=== PATIENT | female | born 1945 | race Caucasian/White ===

== ENCOUNTER 2019-07-05 05:33 | Outpatient (CLI) | payer MEDICARE, OTHER ==
[~2019-07-05] VITALS: Ht 172 cm; Wt 66.3 kg
[2019-07-05] MEDS ORDERED: EMPA10TA PO (09:43)
[2019-07-05] MEDS ORDERED: METF-397 PO (09:43)
== END 2019-07-05 09:55 | disposition home or self-care (01) ==
LOC: PREOP 05:33
PROVIDERS: ATTEND Specialist
DX: Z01.818 Encounter for other preprocedural examination (principal)

== ENCOUNTER 2019-07-06 09:55 | Day surgery (SDC) | payer MEDICARE, OTHER ==
[~2019-07-06] VITALS: Ht 172 cm; Wt 66.3 kg
[~2019-07-06 09:55] MED LIST: EMPA10TA PO; METF-397 PO
[2019-07-06 10:15] VITALS: BP 139/66
[2019-07-06] MEDS ORDERED: MOXIFLOXACIN OPHTH SOLN 5 MG/ML 0.3 ML SYRINGE OP ONE (10:15)
[2019-07-06] MEDS ORDERED: POVIDONE (BETADINE) OPHTH SOLN 5% 30 ML OP ONE (10:15)
[2019-07-06] MEDS ORDERED: LIDOCAINE PF 1% 2 ML AMP IR PRN (10:15)
[2019-07-06] MEDS ORDERED: TIMOLOL MALEATE 0.5% 5 ML (TIMOPTIC) BTL OU PRN (10:15)
[2019-07-06] MEDS: TETRACAINE 0.5% OPHTH SOLN 4 ML BTL (SINGLE DOSE ONLY) OU PRN ×4 (10:16→10:37)
[2019-07-06] MEDS: CYCLOPENTOLATE 1% (CYCLOGYL) 2 ML DROPS OP SCH ×3 (10:24→10:37)
[2019-07-06] MEDS: PHENYLEPHRINE 10% OPHTH (NEO-SYN) 5 ML BTL OU SCH ×3 (10:24→10:37)
--- NOTE | 2019-07-06 10:39 | Ophthalmologist Pre-Op Note ---
Pre-Operative Progress Note H&P Reviewed The H&P was reviewed, patient examined and no changes noted. Date H&P Reviewed: Jul 06, 2019 Time H&P Reviewed: 10:39 Pre-Op Dx Cataract, Right Eye DANIEL SIMON MD Jul 06, 2019 10:39 POS
[2019-07-06] MEDS ORDERED: MIDAZOLAM 2 MG/2 ML (VERSED) VIAL ONE (10:46)
--- NOTE | 2019-07-06 11:06 | Ophthalmology Operative Report ---
Cataract removal/placement IOL PREOPERATIVE DIAGNOSIS: Cataract Right Eye POSTOPERATIVE DIAGNOSIS: Cataract Right Eye PROCEDURE: Cataract removal and placement of posterior chamber implant, right eye SURGEON: Juan Carlos Simon ANESTHESIA: Topical with sedation COMPLICATIONS: None ESTIMATED BLOOD LOSS: Minimal DESCRIPTION OF PROCEDURE: After proper informed consent was obtained, the patient, a 74 female, was taken to the Operating Room and the right eye was anesthetized with tetracaine. The right eye was then prepped and draped in the usual manner. A wire lid speculum was placed. A paracentesis was made at the left hand position. Preservative free lidocaine was injected into the anterior chamber followed by viscoelastic. A clear corneal incision was made in the temporal position. A capsulorrhexis was preformed and the central nuclear and cortical material were removed. The posterior capsule was polished and Nicolas 17.5 AU00T0 IOL was placed into the capsular bag. The residual viscoelastic was aspirated and balanced saline solution was injected into the anterior chamber. Moxifloxacin was injected into the anterior chamber. The wound was checked and found to be water tight. The patient tolerated the procedure well without complications. JUAN CARLOS SIMON MD Jul 06, 2019 11:06 POS
[2019-07-06 11:20] VITALS: BP 125/71
[2019-07-06] MEDS ORDERED: acetaZOLAMIDE ER 500 MG CAP (DIAMOX SEQUELS) PO ONE (11:30)
--- OUTSIDE RECORDS SUMMARY | 2019-08-01 13:15 | XMS REPORT | Continuity of Care Document ---
Author Organization Unknown Address Unknown Phone Unavailable Allergies Active Description Code Type Severity Reaction Onset Reported/Identified Relationship to Patient Clinical Status Yes NO KNOWN DRUG ALLERGIES UNKNOWN NO KNOWN DRUG ALLERG Yes NO KNOWN DRUG ALLERGIES UNKNOWN UNKNOWN Yes No Known Drug Allergies [id number] Drug Allergy Unknown N/A 07/05/2019 Medications There is no data. Problems Date Dx Coded Attending Type Code Diagnosis Diagnosed By 2017 RICK MONTERO 715.16 OSTEOARTHROSIS, LOCALIZED, PRIMARY, INVOLVING LOWER LEG 2017 RICK MONTERO M17.11 UNILATERAL PRIMARY OSTEOARTHRITIS, RIGHT KNEE 01/31/2019 W 790.6 OTHE R ABNORMAL BLOOD CHEMISTRY 01/31/2019 W R73.9 HYPE RGLYCEMIA, UNSPECIFIED 02/09/2019 W 250.80 JOON BETES MELLITUS WITH OTHER SPECIFIED MANIFESTATIONS, TYPE II OR UNSPECIFIED TYPE, NOT STATED UNCONTROLLED 02/09/2019 W E11.65 TYP E 2 DIABETES MELLITUS WITH HYPERGLYCEMIA 02/22/2019 Kendell Keating 250.00 DIABETES MELLITUS WITHOUT MENTION OF COMPLICATION, TYPE II OR UNSPECIFIED TYPE, NOT STATED UNCONTROLLED 02/22/2019 Kendell Keating E11.9 TYPE 2 DIABETES MELLITUS WITHOUT COMPLICATIONS 03/22/2019 Kendell Keating 250.00 DIABETES MELLITUS WITHOUT MENTION OF COMPLICATION, TYPE II OR UNSPECIFIED TYPE, NOT STATED UNCONTROLLED 03/22/2019 Kendell Keating E11.9 TYPE 2 DIABETES MELLITUS WITHOUT COMPLICATIONS 04/09/2019 Kendell Keating 250.00 DIABETES MELLITUS WITHOUT MENTION OF COMPLICATION, TYPE II OR UNSPECIFIED TYPE, NOT STATED UNCONTROLLED 04/09/2019 Kendell Keating E11.9 TYPE 2 DIABETES MELLITUS WITHOUT COMPLICATIONS 04/09/2019 Kendell Keating 250.00 DIABETES MELLITUS WITHOUT MENTION OF COMPLICATION, TYPE II OR UNSPECIFIED TYPE, NOT STATED UNCONTROLLED 04/09/2019 Kendell Keating E11.9 TYPE 2 DIABETES MELLITUS WITHOUT COMPLICATIONS 04/09/2019 Kendell Keating 250.00 DIABETES MELLITUS WITHOUT MENTION OF COMPLICATION, TYPE II OR UNSPECIFIED TYPE, NOT STATED UNCONTROLLED 04/09/2019 Kendell Keating E11.9 TYPE 2 DIABETES MELLITUS WITHOUT COMPLICATIONS 04/09/2019 Kendell Keating 250.00 DIABETES MELLITUS WITHOUT MENTION OF COMPLICATION, TYPE II OR UNSPECIFIED TYPE, NOT STATED UNCONTROLLED 04/09/2019 Kendell Keating E11.9 TYPE 2 DIABETES MELLITUS WITHOUT COMPLICATIONS 04/16/2019 Kendell Keating 250.00 DIABETES MELLITUS WITHOUT MENTION OF COMPLICATION, TYPE II OR UNSPECIFIED TYPE, NOT STATED UNCONTROLLED 04/16/2019 Kendell Keating E11.9 TYPE 2 DIABETES MELLITUS WITHOUT COMPLICATIONS 05/08/2019 W 250.80 JOON BETES MELLITUS WITH OTHER SPECIFIED MANIFESTATIONS, TYPE II OR UNSPECIFIED TYPE, NOT STATED UNCONTROLLED 05/08/2019 W E11.65 TYP E 2 DIABETES MELLITUS WITH HYPERGLYCEMIA 06/21/2019 Kendell Keating 250.00 DIABETES MELLITUS WITHOUT MENTION OF COMPLICATION, TYPE II OR UNSPECIFIED TYPE, NOT STATED UNCONTROLLED 06/21/2019 Kendell Keating E11.9 TYPE 2 DIABETES MELLITUS WITHOUT COMPLICATIONS 07/05/2019 DANIEL SIMON MD Ot Z01.818 ENCOUNTER FOR OTHER PREPROCEDURAL EXAMIN 07/06/2019 DANIEL SIMON MD, Ot E11.36 TYPE 2 DIABETES MELLITUS WITH DIABETIC C 07/06/2019 DANIEL SIMON MD Ot H25.11 AGE-RELATED NUCLEAR CATARACT, RIGHT EYE 07/06/2019 DANIEL SIMON MD Ot Z79.84 DETENTION (CURRENT) USE OF ORAL HYPOGLYC 07/06/2019 DANIEL SIMON MD Ot Z79.899 OTHER DETENTION (CURRENT) DRUG THERAPY 07/06/2019 DANIEL SIMON MD Ot Z80 .9 FAMILY HISTORY OF MALIGNANT NEOPLASM, UN 07/06/2019 DANIEL SIMON MD Ot Z90.710 ACQUIRED ABSENCE OF BOTH CERVIX AND UTER 07/10/2019 DANIEL SIMON MD, Ot E11.36 TYPE 2 DIABETES MELLITUS WITH DIABETIC C 07/10/2019 DANIEL SIMON MD Ot H25.11 AGE-RELATED NUCLEAR CATARACT, RIGHT EYE 07/10/2019 DANIEL SIMON MD, Ot Z79.84 DIRECTOR SELECTION AND ADMINISTRATION (CURRENT) USE OF ORAL HYPOGLYC 07/10/2019 DANIEL SIMON MD Ot Z79.899 OTHER DIRECTOR SELECTION AND ADMINISTRATION (CURRENT) DRUG THERAPY 07/10/2019 DANIEL SIMON MD, Ot Z80 .9 FAMILY HISTORY OF MALIGNANT NEOPLASM, UN 07/10/2019 DANIEL SIMON MD, Ot Z90.710 ACQUIRED ABSENCE OF BOTH CERVIX AND UTER 07/11/2019 DANIEL SIMON MD, Ot E11.36 TYPE 2 DIABETES MELLITUS WITH DIABETIC C 07/11/2019 DANIEL SIMON MD Ot H25.11 AGE-RELATED NUCLEAR CATARACT, RIGHT EYE 07/11/2019 DANIEL SIMON MD, Ot Z79.84 DIRECTOR SELECTION AND ADMINISTRATION (CURRENT) USE OF ORAL HYPOGLYC 07/11/2019 DANIEL SIMON MD, Ot Z79.899 OTHER DETENTION (CURRENT) DRUG THERAPY 07/11/2019 DANIEL SIMON MD, Ot Z80 .9 FAMILY HISTORY OF MALIGNANT NEOPLASM, UN 07/11/2019 DANIEL SIMON MD, Ot Z90.710 ACQUIRED ABSENCE OF BOTH CERVIX AND UTER 07/30/2019 DANIEL SIMON MD, Ot E11.36 TYPE 2 DIABETES MELLITUS WITH DIABETIC C 07/30/2019 DANIEL SIMON MD, Ot H25.12 AGE-RELATED NUCLEAR CATARACT, LEFT EYE 07/30/2019 DANIEL SIMON MD, Ot Z79.84 DETENTION (CURRENT) USE OF ORAL HYPOGLYC 07/30/2019 DANIEL SIMON MD Ot Z79.899 OTHER DETENTION (CURRENT) DRUG THERAPY 07/30/2019 DANIEL SIMON MD, Ot Z80 .9 FAMILY HISTORY OF MALIGNANT NEOPLASM, UN 07/30/2019 DANIEL SIMON MD, Ot Z90.710 ACQUIRED ABSENCE OF BOTH CERVIX AND UTER Procedures There is no data. Results Test Result Range Hemoglobin A1C - 02/01/19 07:39 % A1C 10.80 % 5.40-6.60 AvGlu 309 mg/dL 70-110 Comprehensive Metabolic Panel - 02/01/19 07:39 Albumin 4.0 g/dL 3.6-5.1 ALP 94 U/L 35-130 ALT 19 U/L 6-45 Anion Gap 12 6-14 AST 27 U/L 2-40 BUN 11 mg/dL 5-25 Calcium 9.8 mg/dL 8.3-10.4 Chloride 104 mmol/L 95-114 CO2 26 mEq/L 22-33 Creat 0.66 mg/dL 0.50-1.50 eGFR 88 mL/min/1.73m2 >59 Globulin 2.7 g/dL 2.3-3.5 Glucose 262 mg/dL 70-110 Osmo 293 280-295 Potassium 4.2 mmol/L 3.5-5.3 Sodium 138 mmol/L 134-148 TBil 0.9 mg/dL 0.2-1.2 TP 6.7 g/dL 6.0-8.3 Lipid Panel - 02/01/19 07:39 C/HDL 3.6 3.7-6.7 Cholesterol 176 mg/dL 100-240 HDL 49 mg/dL 30-85 LDL-Calculated 100 mg/dL 0-100 Trig 134 mg/dL 35-160 VLDL 27 mg/dL 0-42 Hemoglobin A1C - 04/09/19 08:58 % A1C 7.00 % 5.40-6.60 AvGlu 173 mg/dL 70-110 Encounters ACCT No. Visit Date/Time Discharge Status Pt. Type Provider Facility Loc./Unit Complaint [id number] 06/21/2019 08:11:00 06/21/2019 23:59: 00 DIS Outpatient Kendell Keating [id number] 05/10/2019 14:49:00 05/10/2019 23:59: 00 DIS Outpatient Kendell Keating [id number] 04/16/2019 10:51:00 04/16/2019 23:59: 00 DIS Outpatient Kendell Keating [id number] 04/09/2019 08:55:00 04/09/2019 23:59: 00 DIS Outpatient Kendell Keating [id number] 04/09/2019 08:13:00 04/09/2019 23:59: 00 DIS Outpatient Kendell Keating [id number] 03/22/2019 09:24:00 03/22/2019 23:59: 00 DIS Outpatient Kendell Keating [id number] 02/22/2019 12:56:00 02/22/2019 23:59: 00 DIS Outpatient Kendell Keating [id number] 02/01/2019 07:34:00 02/01/2019 23:59: 00 DIS Outpatient Kendell Keating [id number] 03/22/2017 10:48:00 05/25/2017 10:40: 00 DIS Outpatient RICK MONTERO [id number] 03/17/2017 10:20:00 03/17/2017 23:59: 00 DIS Outpatient Kendell Keating [id number] 02/08/2019 12:50:03 Document Registration [id number] 01/31/2019 09:09:00 Document Registration [id number] 07/13/2019 10:15:00 11:53:00 DIS Outpatient DANIEL SIMON MD Via [facility] CATARACT LEFT EYE [id number] 07/06/2019 09:55:00 11:20:00 DIS Outpatient DANIEL SIMON MD [facility] CATARACT RIGHT EYE [id number] 07/05/2019 05:33:00 09:55:00 DIS Outpatient DANIEL SIMON MD Via [facility] PREOP CATARACT RIGHT EYE
== END 2019-07-06 11:20 | disposition home or self-care (01) ==
LOC: SDC 09:55
PROVIDERS: ATTEND Specialist
DX: E11.36 Type 2 diabetes mellitus with diabetic cataract (principal); H25.11 Age-related nuclear cataract, right eye; Z79.84 Long term (current) use of oral hypoglycemic drugs; Z79.899 Other long term (current) drug therapy; Z90.710 Acquired absence of both cervix and uterus; Z80.9 Family history of malignant neoplasm, unspecified

== ENCOUNTER 2019-07-13 10:15 | Day surgery (SDC) | payer MEDICARE, OTHER ==
--- NOTE | 2019-07-06 12:01 | Anesthesia-General Post-Op ---
MAC Patient Condition Mental Status/LOC: Same as Preop Cardiovascular: Satisfactory Nausea/Vomiting: Absent Respiratory: Satisfactory Pain: Controlled Complications: Absent Post Op Complications Complications None Follow Up Care/Instructions Patient Instructions None needed. Anesthesiology Discharge Order Discharge Order Patient is doing well, no complaints, stable vital signs, no apparent adverse anesthesia problems. No complications reported per nursing. KING PEREZ CRNA Jul 06, 2019 12:01 POS
[~2019-07-13] VITALS: Ht 165.1 cm; Wt 66.3 kg
[2019-07-13 10:30] VITALS: BP 152/67
[2019-07-13] MEDS ORDERED: LIDOCAINE PF 1% 2 ML AMP IR PRN (10:30)
[2019-07-13] MEDS ORDERED: MOXIFLOXACIN OPHTH SOLN 5 MG/ML 0.3 ML SYRINGE OP ONE (10:30)
[2019-07-13] MEDS ORDERED: TIMOLOL MALEATE 0.5% 5 ML (TIMOPTIC) BTL OU PRN (10:30)
[2019-07-13] MEDS ORDERED: POVIDONE (BETADINE) OPHTH SOLN 5% 30 ML OP ONE (10:30)
[2019-07-13] MEDS: TETRACAINE 0.5% OPHTH SOLN 4 ML BTL (SINGLE DOSE ONLY) OU PRN ×4 (10:31→10:50)
[2019-07-13] MEDS: CYCLOPENTOLATE 1% (CYCLOGYL) 2 ML DROPS OP SCH ×3 (10:40→10:50)
[2019-07-13] MEDS: PHENYLEPHRINE 10% OPHTH (NEO-SYN) 5 ML BTL OU SCH ×3 (10:40→10:50)
--- NOTE | 2019-07-13 11:21 | Ophthalmologist Pre-Op Note ---
Pre-Operative Progress Note H&P Reviewed The H&P was reviewed, patient examined and no changes noted. Date H&P Reviewed: Jul 13, 2019 Time H&P Reviewed: 11:20 Pre-Op Dx Cataract, Left Eye DANIEL SIMON MD Jul 13, 2019 11:21 POS
[2019-07-13] MEDS ORDERED: MIDAZOLAM 2 MG/2 ML (VERSED) VIAL ONE (11:25)
--- NOTE | 2019-07-13 11:44 | Ophthalmology Operative Report ---
Cataract removal/placement IOL PREOPERATIVE DIAGNOSIS: Cataract Left Eye POSTOPERATIVE DIAGNOSIS: Cataract Left Eye PROCEDURE: Cataract removal and placement of posterior chamber implant, left eye SURGEON: Juan Carlos Simon ANESTHESIA: Topical with sedation COMPLICATIONS: None ESTIMATED BLOOD LOSS: Minimal DESCRIPTION OF PROCEDURE: After proper informed consent was obtained, the patient, a 74 female, was taken to the Operating Room and the left eye was anesthetized with tetracaine. The left eye was then prepped and draped in the usual manner. A wire lid speculum was placed. A paracentesis was made at the left hand position. Preservative free lidocaine was injected into the anterior chamber followed by viscoelastic. A clear corneal incision was made in the temporal position. A capsulorrhexis was preformed and the central nuclear and cortical material were removed. The posterior capsule was polished and an Nicolas 18.0 AU00T0 was placed into the capsular bag. The residual viscoelastic was aspirated and balanced saline solution was injected into the anterior chamber. Moxifloxacin was injected into the anterior chamber. The wound was checked and found to be water tight. The patient tolerated the procedure well without complications. JUAN CARLOS SIMON MD Jul 13, 2019 11:44 POS
[2019-07-13 11:46] VITALS: BP 144/70
[2019-07-13] MEDS ORDERED: acetaZOLAMIDE ER 500 MG CAP (DIAMOX SEQUELS) PO ONE (12:30)
--- NOTE | 2019-07-13 12:44 | Anesthesia-General Post-Op ---
MAC Patient Condition Mental Status/LOC: Same as Preop Cardiovascular: Satisfactory Nausea/Vomiting: Absent Respiratory: Satisfactory Pain: Controlled Complications: Absent Post Op Complications Complications None Follow Up Care/Instructions Patient Instructions None needed. Anesthesiology Discharge Order Discharge Order Patient is doing well, no complaints, stable vital signs, no apparent adverse anesthesia problems. No complications reported per nursing. KING PEREZ CRNA Jul 13, 2019 12:44 POS
== END 2019-07-13 11:53 | disposition home or self-care (01) ==
LOC: SDC 10:15
PROVIDERS: ATTEND Specialist
DX: E11.36 Type 2 diabetes mellitus with diabetic cataract (principal); H25.12 Age-related nuclear cataract, left eye; Z90.710 Acquired absence of both cervix and uterus; Z79.84 Long term (current) use of oral hypoglycemic drugs; Z79.899 Other long term (current) drug therapy; Z80.9 Family history of malignant neoplasm, unspecified